=== PATIENT | male | born 1990 | race Caucasian/White ===

== ENCOUNTER 2018-11-04 06:24 | Day surgery (SDC) | payer OTHER ==
[2018-11-04] VITALS (7 sets, daily range): BP systolic 103–120; BP diastolic 51–83
[~2018-11-04] VITALS: Ht 177.8 cm; Wt 99.8 kg
[~2018-11-04 06:24] MED LIST: NKM; ceFAZolin 1gm IVPB IVPB ONE; celeBREX 200mg Cap **SURGERY PATIENTS ONLY ORAL ONE; oxyCONTIN 20mg tab ORAL ONE
[2018-11-04] MEDS ORDERED: Zemuron 50mg/5ml Inj IV ONE (06:57)
[2018-11-04] MEDS ORDERED: EPINEPHrine 1mg/1ml Amp ONE (07:19)
[2018-11-04] MEDS ORDERED: Ketorolac 30mg Inj ONE (07:19)
[2018-11-04] MEDS ORDERED: Kenalog-40 1ml Vial ONE (07:19)
[2018-11-04] MEDS ORDERED: Morphine Sulfate PF 10 ML ONE (07:19)
[2018-11-04] MEDS ORDERED: Bupivacaine 0.25% Inj 30ml INJ ONE (07:20)
[2018-11-04] MEDS ORDERED: Lidocaine 1% 10mg/ml/Epi 0.005mg/ml 30ml vial INJ ONE (07:20)
[2018-11-04] MEDS ORDERED: fentaNYL 100 mcg/2 mL IV ONE (07:29)
--- NOTE | 2018-11-04 07:29 | Pre-Procedure Note/Attestation ---
Pre-Procedure Note/Attestation Complete Prior to Procedure Planned Procedure: left Procedure Narrative: knee diagnostic arthroscopy, possible synovectomy Indications for Procedure Pre-Operative Diagnosis: left knee internal derangement Attestation I attest that I discussed the nature of the procedure; its benefits; risks and complications; and alternatives (and the risks and benefits of such alternatives ), prior to the procedure, with the patient (or the patient's legal national account representative). I attest that, if there was a reasonable possibility of needing a blood transfusion, the patient (or the patient's legal national account representative) was given the [facility] standardized written summary, pursuant to the Tyron Johnson Siding Blood Safety Act ([place] Health and Safety Code # 1645, as amended). I attest that I re-evaluated the patient just prior to the surgery and that there has been no change in the patient's H&P, except as documented below: Chidi Moses MD Nov 04, 2018 07:29
--- NOTE | 2018-11-04 07:29 | Operative Note - PDOC ---
Operative Note Operative Note Pre-op Diagnosis: left knee internal derangement Procedure: se op report Post-op Diagnosis: same as pre-op plus Operative Findings: consistent w/pre-op dx studies Anesthesia: MAC Specimen: none Complications: none Condition: stable Estimated Blood Loss: none Implant(s) used?: No Chidi Moses MD Nov 04, 2018 07:29
[2018-11-04] MEDS ORDERED: Sterile Water Irrig 1000ml IRRIG ONE (07:30)
[2018-11-04] MEDS ORDERED: NS Irrig 1000ml ONE (07:30)
[2018-11-04] MEDS ORDERED: LR 1000ml ONE (07:30)
[2018-11-04] MEDS ORDERED: Metoclopramide 10mg/2ml Inj ONE (07:40)
[2018-11-04] MEDS ORDERED: Duramorph PF 10mg/10ml amp EPIDUR ONE (07:40)
[2018-11-04] MEDS ORDERED: Lidocaine 1% MPF 10mg/ml 5ml ONE (07:40)
[2018-11-04] MEDS ORDERED: Propofol 200mg/20ml IV ONE (07:40)
--- NOTE | 2018-11-04 07:59 | Anethesia Preoperative Eval ---
Anesthesia Pre-op PMH/ROS General Date of Evaluation: Nov 04, 2018 Time of Evaluation: 07:00 Anesthesiologist: aleks ASA Score: ASA 2 Mallampati Score Class I : Soft palate, uvula, fauces, pillars visible Class II: Soft palate, uvula, fauces visible Class III: Soft palate, base of uvula visible Class IV: Only hard plate visible Mallampati Classification: Class II Surgeon: vivek Diagnosis: knee pain Surgical Procedure: knee scope Anesthesia History: none Family History: no anesthesia problems Allergies: Coded Allergies: No Known Allergies (Unverified , 11/04/18) Medications: see eMAR Patient NPO?: Yes NPO Date: Nov 04, 2018 NPO Time: 00:01 Past Medical History Cardiovascular: Denies: HTN, CAD, [place], valve dz, arrhythmia, other Pulmonary: Denies: asthma, COPD, RADHA, other Gastrointestinal/Genitourinary: Reports: GERD; Denies: CRI, ESRD, other Neurologic/Psychiatric: Denies: dementia, CVA, depression/anxiety, TIA, other Endocrine: Denies: DM, hypothyroidism, steroids, other HEENT: Denies: cataract (L), cataract (R), glaucoma, [place] (L), [place] (R), other Hematology/Immune: Denies: anemia, DVT, bleeding disorder, other Musculoskeletal/Integumentary: Denies: OA, RA, DJD, DDD, edema, other Anesthesia Pre-op Phys. Exam Physician Exam Last Vital Signs Date Time Temp Pulse Resp B/P (MAP) Pulse Ox O2 Delivery O2 Flow Rate FiO2 11/04/18 06:50 97.0 57 18 103/51 97 Room Air Constitutional: NAD Neurologic: CN 2-12 intact Cardiovascular: RRR Respiratory: CTA Gastrointestinal: S/NT/ND Airway Exam Mallampati Classification 2 Mallampati Score: Class II MO: full TMD: 2fb ROM: full Dentures: no upper, no lower Anesthesia Pre-op A/P Studies Pre-op Studies: EKG - sr Risk Assessment & Plan Plan: general LMA Status Change Before Surgery: No Pre-Antibiotics Drug: ancef Given Within 1 Hr of Incision: Yes Time Given: 07:45 Mell Mann CRNA Nov 04, 2018 07:59
[2018-11-04] MEDS ORDERED: fentaNYL 100 mcg/2 mL IV PRN (08:00)
--- NOTE | 2018-11-04 10:13 | 48 Hour Post Anesthesia Eval ---
Post Anesthesia Evaluation Procedure: knee scope Date of Evaluation: Nov 04, 2018 Time of Evaluation: 10:12 Blood Pressure Systolic: 120 0: 64 Pulse Rate: 70 Respiratory Rate: 16 O2 Sat by Pulse Oximetry: 98 Airway: patent Nausea: No Vomiting: No Hydration Status: adequate Cardiopulmonary Status: stable Mental Status/LOC: patient returned to baseline Follow-up Care/Observations: na Post-Anesthesia Complications: none Follow-up care needed: N/A Mell Mann CRNA Nov 04, 2018 10:13
--- NOTE | 2018-11-04 10:14 | Immediate Post-Op Evaluation ---
Immediate Post-Op Evalulation Immediate Post-Op Evalulation Procedure: knee scope Date of Evaluation: Nov 04, 2018 Time of Evaluation: 08:25 IV Fluids: 600 Blood Products: 0 Blood Pressure Systolic: 111 Blood Pressure Diastolic: 83 Pulse Rate: 73 Respiratory Rate: 14 O2 Sat by Pulse Oximetry: 98 Temperature (Fahrenheit): 97.6 Nausea: No Vomiting: No Patient Status: awake, reacts, patent Hydration Status: adequate Drug: ancef Given Within 1 Hr of Incision: Yes Mell Mann CRNA Nov 04, 2018 10:14
[2018-11-04] MEDS ORDERED: Tylenol #3 tab (300mg/30mg) ORAL PRN (14:01)
[2018-11-04] MEDS ORDERED: HYDROcodone/Acetamin 5/325 tab ORAL PRN (14:01)
[2018-11-04] MEDS ORDERED: HYDROmorphone 1mg/ml Carpuject SUBQ PRN (14:01)
[2018-11-04] MEDS ORDERED: D5 1/2NS 1,000 ML IV SCH (14:01)
--- NOTE | 2018-11-04 17:00 | Operative Note - Dictated ---
DATE OF OPERATION: 11/04/2018 PREOPERATIVE DIAGNOSIS: Internal derangement, left knee, possible meniscal tear. POSTOPERATIVE DIAGNOSES: Left knee hypertrophic synovial tissue/medial plica. PROCEDURE: 1. Left knee diagnostic arthroscopy. 2. Left knee synovectomy, medial and lateral patellofemoral compartment. SURGEON: Chidi Moses M.D. ANESTHESIA: MAC. INDICATION FOR PROCEDURE: The patient is a pleasant 28-year-old gentleman who continued to have anterior knee pain. He failed conservative treatment, elected to undergo left knee diagnostic arthroscopy, possible medial meniscectomy, synovectomy . Risks, limitations, expectations, and complications of procedure were discussed in detail. All questions were addressed. DESCRIPTION OF PROCEDURE: After informed consent was obtained, the patient was brought to the operating room. The patient was placed under monitored anesthesia control. Left leg was prepped and draped under sterile manner. Ancef was administered. Time-out was performed. Inferolateral stab incision was then made. Trocar was introduced into the knee joint. There was hypertrophic synovial tissue in the retropatellar space area. There was area of medial plica that was rubbing against the medial femoral condyle. The medial gutter was free of any loose bodies. Medial compartment was entered and the meniscus appeared to be grossly intact. A medial working portal was established and there was no chondral meniscal pathology. ACL, hypertrophic ligamentum mucosa, synovial tissue, this was debrided all the way to the lateral compartment to better visualize ACL. The ACL was probed and noted to be intact. Lateral compartment was entered, free of meniscal chondral damage. Camera was then placed in the patellofemoral compartment and excision of the medial plica and synovial tissue was performed. Once that was completed, the instruments were removed. Portal sites were closed using 3-0 Monocryl sutures. Steri-Strips and a sterile dressing were applied. The patient was awoken and taken to the recovery room with stable vital signs. ESTIMATED BLOOD LOSS: Minimal. COMPLICATIONS: None. SPECIMENS: None. IMPLANTS: None. Chidi Moses M.D. DR: Mehdi JOB#: [id number] CC:
== END 2018-11-04 09:40 | disposition home or self-care (01) ==
LOC: SUR 06:24
DX: M67.262 Synovial hypertrophy, not elsewhere classified, left lower leg (principal); K21.9 Gastro-esophageal reflux disease without esophagitis
CPT/HCPCS: 29876; J0171; J0690; J1885; J2274; J2405; J2704; J2765; J3010; J3301; J3490; 94003; 94150